=== PATIENT | female | born 1940 | race Caucasian/White ===

== ENCOUNTER 2018-07-26 15:53 | Emergency (ER) | payer MEDICARE ==
[2018-07-26 16:17] LABS: BILIRUBIN,URINE NEGATIVE (NEGATIVE); GLUCOSE, URINE (UA) NEGATIVE (NEGATIVE); KETONES,URINE (UA) NEGATIVE (NEGATIVE); LEUKOCYTE ESTERASE, URINE SMALL (NEGATIVE); NITRITE,URINE POSITIVE (NEGATIVE); OCCULT BLOOD,URINE TRACE-INTA (NEGATIVE); PROTEIN,URINE TRACE mg/dL (NEGATIVE); UROBILINOGEN,URINE 0.2 (NORMAL) E.U./dL (NORMAL)
[2018-07-26 16:23] LABS: CLARITY,URINE HAZY (CLEAR)
[2018-07-26 16:24] LABS: BACTERIA,URINE Many /HPF (None Seen); RBC,URINE 0-5 /HPF (0-5); SQUAMOUS EPITHELIAL CELL,UR FEW Squamous (<= Few); WBC CLUMPS,URINE PRESENT
--- NOTE | 2018-07-26 16:30 | ED Physician Documentation ---
History of Present Illness - Stated complaint Stated Complaint: CONFUSION/DIFFICULTY REMEMBERING - Chief complaint Chief Complaint: Neuro - History obtained from History obtained from: Patient, Friend - Additonal information Additional information: Patient is a 78-year-old female with history of hypertension and chronic pain presenting with her friend with concern for confusion and word finding diff iculty. Time of onset is unknown as patient lives alone. Friend reports that patient called her earlier today stating that she did not feel well and wanted to go to the emergency department. Patient was particularly complaining of nausea, but denies fever, shortness of breath, cough, chest pain, abdominal pain, urinary or stool changes. Patient perseverates on stopping her chronic narcotic pain medications. Patient is able to produce multiple pill bottles for oxycodone 53 25 quantity 90, 2 bottles both filled on 06/17/18. Patient cannot explain if she has taken all of them or if she got rid of them. There are no pills in either bottle. Patient speaks to receiving a letter in the mail from her old primary care group stating that she should no longer be taking narcotics. Friend does not have much further information and additional family members are trying to be contacted. Otherwise, patient cannot provide further details. No known worsening or improving factors to symptoms. Review of Systems Unable to obtain: Confused Constitutional: denies: Fever GI: denies: Abdominal Pain PD PAST MEDICAL HISTORY - Past Medical History Cardiovascular: Hypertension HEENT: Other - Past Surgical History Past Surgical History: Yes Ortho: Spine surgery HEENT: Cataracts, Tonsil/Adenoidectomy - Present Medications Home Medications: Ambulatory Orders Medication Instructions Recorded Confirmed HYDROcod/ACETAM 5/325 [[place] 5/325] 1 ea PO Q6H PRN #15 tablet 05/14/15 Lidocaine Patch 5% [Lidoderm Patch] 1 each TOP DAILY PRN #10 patch 05/14/15 Cephalexin [Keflex] 500 mg PO BID #14 capsule 07/26/18 - Allergies Allergies/Adverse Reactions: Allergies Allergy/AdvReac Type Severity Reaction Status Date / Time Sulfa (Sulfonamide Allergy Rash Verified 07/26/18 16:08 Antibiotics) - Social History Does the pt smoke?: No Smoking Status: Never smoker Does the pt drink ETOH?: Yes Does the pt have substance abuse?: No - Immunizations Immunizations are current?: Yes - POLST Patient has POLST: No PD ED PE NORMAL - General General: Other (Anxious, otherwise healthy-appearing, sitting comfortably and otherwise in bleeding without issue in room. Speaking in full sentences.) - HEENT HEENT: Atraumatic, PERRL (Gross visual acuity intact. No nystagmus.), EOMI, Moist mucous membranes, Pharynx benign - Neck Neck: No bony TTP - Cardiac Cardiac: RRR, No murmur - Respiratory Respiratory: No respiratory distress, Clear bilaterally - Abdomen Abdomen: Normal bowel sounds, Soft, Non tender, Non distended - Derm Derm: Normal color, Warm and dry, No rash - Extremities Extremities: No deformity, No tenderness to palpate, No edema - Neuro Neuro: No motor deficit (No gross motor or sensory deficits present. Patient using all extremities spontaneously and purposefully.), No sensory deficit, Normal speech (Normal sounding speech and speaking in full sentences, but pressured.). No: Alert and oriented X 3 (Patient oriented to herself only.) - Psych Psych: Other (Anxious) Results - Vitals Vitals: Vital Signs - 24 hr 07/26/18 07/26/18 16:04 18:21 Temperature 36.7 C 36.9 C Heart Rate 115 H 94 Respiratory 18 20 Rate Blood Pressure 146/95 H 190/106 H O2 Saturation 96 95 Oxygen O2 Source Room air - EKG (time done) 1701 Rate: Rate (enter#) (92) Rhythm: NSR QRS: LVH - Labs Labs: Laboratory Tests 07/26/18 07/26/18 07/26/18 16:04 17:00 17:00 WBC 8.0 RBC 4.32 Hgb 13.2 Hct 37.6 MCV 87.1 MCH 30.5 MCHC 35.1 RDW 12.5 Plt Count 348 MPV 7.3 L Neut # (Auto) 6.4 Lymph # (Auto) 1.1 L Andrews # (Auto) 0.5 Eos # (Auto) 0.0 Baso # (Auto) 0.1 Absolute Nucleated RBC 0.00 Nucleated RBC % 0.0 Sodium 136 Potassium 3.6 Chloride 99 L Carbon Dioxide 25 Anion Gap 12.0 BUN 19 Creatinine 0.8 Estimated GFR (MDRD) 69 L Glucose 127 H Calcium 9.9 Total Bilirubin 0.7 AST 26 ALT 20 Alkaline Phosphatase 74 Troponin I Total Protein 7.7 Albumin 4.9 Globulin 2.8 Albumin/Globulin Ratio 1.8 Lipase 28 TSH Urine Color YELLOW Urine Clarity HAZY Urine pH 6.0 Ur Specific [place] 1.020 Urine Protein TRACE Urine Glucose (UA) NEGATIVE Urine Ketones NEGATIVE Urine Occult Blood TRACE-INTA Urine Nitrite POSITIVE H Urine Bilirubin NEGATIVE Urine Urobilinogen 0.2 (NORMAL) Ur Leukocyte Esterase SMALL H Urine RBC 0-5 Urine WBC >25 H Urine WBC Clumps PRESENT Ur Squamous Epith Cells FEW Squamous Urine Bacteria Many H Ur Microscopic Review INDICATED Urine Culture Comments INDICATED Salicylates < 6.0 Urine Opiates Screen Ur Oxycodone Screen Urine Methadone Screen Ur Propoxyphene Screen Acetaminophen < 10 L Ur Barbiturates Screen Ur Tricyclics Screen Ur Phencyclidine Scrn Ur Amphetamine Screen U Methamphetamines Scrn U Benzodiazepines Scrn Urine Cocaine Screen U Cannabinoids Screen Ethyl Alcohol < 5.0 07/26/18 07/26/18 07/26/18 17:00 17:00 19:00 WBC RBC Hgb Hct MCV MCH MCHC RDW Plt Count MPV Neut # (Auto) Lymph # (Auto) Andrews # (Auto) Eos # (Auto) Baso # (Auto) Absolute Nucleated RBC Nucleated RBC % Sodium Potassium Chloride Carbon Dioxide Anion Gap BUN Creatinine Estimated GFR (MDRD) Glucose Calcium Total Bilirubin AST ALT Alkaline Phosphatase Troponin I < 0.04 Total Protein Albumin Globulin Albumin/Globulin Ratio Lipase TSH 0.51 Urine Color Urine Clarity Urine pH Ur Specific [place] Urine Protein Urine Glucose (UA) Urine Ketones Urine Occult Blood Urine Nitrite Urine Bilirubin Urine Urobilinogen Ur Leukocyte Esterase Urine RBC Urine WBC Urine WBC Clumps Ur Squamous Epith Cells Urine Bacteria Ur Microscopic Review Urine Culture Comments Salicylates Urine Opiates Screen NEGATIVE Ur Oxycodone Screen POSITIVE H Urine Methadone Screen NEGATIVE Ur Propoxyphene Screen NEGATIVE Acetaminophen Ur Barbiturates Screen NEGATIVE Ur Tricyclics Screen NEGATIVE Ur Phencyclidine Scrn NEGATIVE Ur Amphetamine Screen NEGATIVE U Methamphetamines Scrn NEGATIVE U Benzodiazepines Scrn NEGATIVE Urine Cocaine Screen NEGATIVE U Cannabinoids Screen NEGATIVE Ethyl Alcohol PD MEDICAL DECISION MAKING - ED course Complexity details: reviewed old records, reviewed results, re-evaluated patient, considered differential, d/w patient, d/w family ED course: Patient has minimal chart review. Friend is present with patient, but does not have many details. Patient herself is anxious and confused and perseverates on certain topics, although is unable to provide significant history. Physical exam does not reveal evidence of trauma or specific neurological deficit, as well as any signs of particular systemic infection.Patient does have multiple pill bottles for oxycodone with her. All pill bottles are empty and do have concern for possible ingestion of narcotics, although patient does not appear to be suffering from narcosis. Patient could also be withdrawing from narcotics as she has been taking these medications regularly for several years, as reported by her.Patient has pressured speech, but no known history of psychiatric disorder per chart review or per her or her friend.At this time, considering multiple etiologies including intracranial pathology such as stroke or mass. Feel less likely that patient is suffering from systemic illness like pneumonia or UTI, as well as from cardiac process like ACS, myocardial infarction, unstable angina, but considered. Will obtain broad workup including screening lab work, urinalysis, drug screening, and CT head to begin with. Friend is trying to contact additional family members.Nursing staff was able to get a hold of patient's son, who unfortunately is not able to come in [facility], but admitted that his mother has been suffering from dementia-like symptoms for the past several months and he has had to take over more of her daily activities for her. At this time, it appears that her changes are not necessarily acute, but likely gradual possibly worsening, again more indicative of dementia or Alzheimer's. Lab work returned relatively unremarkable. However, urinalysis concerning for infection and feel that UTI could be contributing to her underlying dementia and worsening of the situation. Will give fluids and IV antibiotics while in ED and awaiting further workup. CT imaging also returned without evidence of stroke. At this time, do not feel patient requires emergent MRI as feel that her underlying dementia and new UTI are the likely cause for her altered mental status. Friend is still present and able to drive patient home and sent states that he will check on patient tomorrow morning. Prescribed antibiotic for home for UTI, as well as provided documentation supportive cares, return precautions, and need for close follow-up. Friend, son, and patient voiced understanding. Departure - Departure Disposition: 01 Home, Self Care Clinical Impression: Altered mental status Qualifiers: Altered mental status type: unspecified Qualified Code(s): R41.82 - Altered mental status, unspecified Dementia Qualifiers: Dementia type: unspecified type Dementia behavioral disturbance: with behavioral disturbance Qualified Code(s): F03.91 - Unspecified dementia with behavioral disturbance Urinary tract infection Qualifiers: Urinary tract infection type: acute cystitis Hematuria presence: without hematuria Qualified Code(s): N30.00 - Acute cystitis without hematuria Condition: Good Instructions: ED UTI Cystitis Female Follow-Up: NOAH AGUAYO MD [Primary Care Provider] - Within 3 Days Prescriptions: Cephalexin [Keflex] 500 mg PO BID #14 capsule Comments: Please continue any home medications as previously prescribed, although do not recommend continuing oxycodone or other sedative substances as this may cause your mentation to worsen. Please take antibiotic as prescribed through completion for bladder infection. Please contact your primary care physician tomorrow to establish follow-up to discuss your urinary tract infection, as well as concerns for dementia-like changes, particularly over the past several months. Return to ED sooner if expands worsening symptoms or other concerns.
[2018-07-26 17:09] LABS: BASOPHILS # (AUTO) 0.1 10^3/uL (0.0-0.1); BASOPHILS % (AUTO) 0.7 %; EOSINOPHILS % (AUTO) 0.1 %; HGB - HEMOGLOBIN 13.2 g/dL (12.0-16.0); LYMPHOCYTES # (AUTO) 1.1 10^3/uL (1.5-3.5); LYMPHOCYTES % (AUTO) 13.5 %; MEAN CORPUSCULAR HEMOGLOBIN 30.5 pg (27.0-31.0); MEAN CORPUSCULAR HGB CONC 35.1 g/dL (32.0-36.0); MEAN CORPUSCULAR VOLUME 87.1 fL (81.0-99.0); MEAN PLATELET VOLUME 7.3 fL (7.9-10.8); MONOCYTES # (AUTO) 0.5 10^3/uL (0.0-1.0); MONOCYTES % (AUTO) 6.4 %; NEUTROPHILS # (AUTO) 6.4 10^3/uL (1.5-6.6); NEUTROPHILS % (AUTO) 79.3 %; PLT - PLATELET COUNT 348 10^3/uL (130-450); RED BLOOD COUNT 4.32 10^6/uL (4.20-5.40); RED CELL DISTRIBUTION WIDTH 12.5 % (12.0-15.0)
[2018-07-26 17:22] LABS: ACETAMINOPHEN < 10 ug/mL (10-30); ALBUMIN 4.9 g/dL (3.2-5.5); ALBUMIN/GLOBULIN RATIO 1.8 (1.0-2.2); ALKALINE PHOSPHATASE 74 IU/L (42-121); ALT ALANINE AMINOTRANSFERASE 20 IU/L (10-60); AST ASPARTATE AMINOTRANSFERASE 26 IU/L (10-42); BILIRUBIN,TOTAL 0.7 mg/dL (0.2-1.0); BUN - BLOOD UREA NITROGEN 19 mg/dL (6-20); CALCIUM 9.9 mg/dL (8.5-10.3); CARBON DIOXIDE - CO2 25 mmol/L (21-32); CHLORIDE 99 mmol/L (101-111); CREATININE 0.8 mg/dL (0.4-1.0); GFR - MDRD 69 (>89); GLUCOSE 127 mg/dL (70-100); LIPASE 28 U/L (22-51); SALICYLATE < 6.0 mg/dL; SODIUM 136 mmol/L (135-145); TOTAL PROTEIN 7.7 g/dL (6.7-8.2)
--- NOTE | 2018-07-26 17:52 | CT Report ---
Reason: new onset confusion, word finding difficulty Procedure Date: 07/26/2018 Accession Number: [id number] / [id number] Procedure: CT - HEAD WO CPT Code: FULL RESULT: EXAM: CT HEAD EXAM DATE: 07/26/2018 05:19 PM. CLINICAL HISTORY: New onset confusion, word finding difficulty. COMPARISON: None. TECHNIQUE: Multiaxial CT images were obtained from the foramen magnum to the vertex. Reformats: Sagittal and coronal. IV contrast: None. In accordance with CT protocol optimization, one or more of the following dose reduction techniques were utilized for this exam: automated exposure control, adjustment of mA and/or KV based on patient size, or use of iterative reconstructive technique. FINDINGS: Parenchyma: No intraparenchymal hemorrhage. No evidence of mass, midline shift, or CT findings of acute infarction. Periventricular white matter hypodensity likely represent small vessel ischemic disease. Feliz-white differentiation is distinct. Extraaxial Spaces: Normal for age. No subdural or epidural collections identified. Ventricles: Normal in size and position. Sinuses and Orbits: Imaged paranasal sinuses, orbits, and mastoids show no significant abnormality. Bones: No evidence of fracture or calvarial defect. Other: None. IMPRESSION: No acute intracranial CT abnormality. RADIA
[2018-07-26] MEDS ORDERED: SODIUM CHLORIDE 0.9% 1,000 ML IV ONE (18:46)
[2018-07-26] MEDS ORDERED: cefTRIAXone 1 GM in SODIUM CHLORIDE 0.9% MINIBAG 100 ML IV STA (18:47)
[2018-07-26 19:05] LABS: MUDS CUTOFF CONCENTRATIONS CUTOFF CONC BELOW:
[2018-07-26 19:34] LABS: AMPHETAMINE SCREEN,URINE NEGATIVE (NEGATIVE); BENZODIAZEPINES SCREEN, URINE NEGATIVE (NEGATIVE); COCAINE SCREEN URINE NEGATIVE (NEGATIVE); METHADONE SCREEN, URINE NEGATIVE (NEGATIVE); METHAMPHETAMINES SCREEN, URINE NEGATIVE (NEGATIVE); OPIATE SCREEN, URINE NEGATIVE (NEGATIVE); OXYCODONE SCREEN, URINE POSITIVE (NEGATIVE); PROPOXYPHENE SCREEN, URINE NEGATIVE (NEGATIVE); TRICYCLIC ANTIDEPRESSANT,URINE NEGATIVE (NEGATIVE)
[2018-07-26 20:14] VITALS: BP 155/105
== END 2018-07-26 20:22 | disposition home or self-care (01) ==
LOC: ED 15:53
DX: F03.91 Unspecified dementia, unspecified severity, with behavioral disturbance (principal); N30.00 Acute cystitis without hematuria; I10 Essential (primary) hypertension
CPT/HCPCS: 36415; 70450; 80053; 80306; 80307; 80320; 80329; 81001; 81003; 83690; 84443; 84484; 85025; 87077; 87086; 87181; 93005; 96365; 99284

== ENCOUNTER 2018-08-14 08:04 | Emergency (ER) | payer MEDICARE ==
[2018-08-14] MEDS ORDERED: HYOSCYAMINE SL 0.125 MG TABLET SL STA (08:34)
[2018-08-14] MEDS ORDERED: SODIUM CHLORIDE 0.9% 1,000 ML IV ONE (08:34)
--- NOTE | 2018-08-14 08:45 | ED Physician Documentation ---
PD HPI ABD PAIN - Stated complaint Stated Complaint: ABD PX/WEAKNESS - Chief complaint Chief Complaint: UTI - History obtained from History obtained from: Patient, Family - History of Present Illness Timing - onset: Today Timing - duration: Days (1) Timing - details: Abrupt onset Pain level max: 10 Pain level now: 1 Quality: Pain Location: All over / everywhere Improved by: Other (Nothing) Worsened by: Other (Nothing) Associated symptoms: Nausea, Constipation (Unknown last bowel movement). No: Fever, Vomiting, Hematemesis, Diarrhea, Melena, Hematochezia, Dysuria, Hematuria Similar symptoms before: Diagnosis (Has chronic all over body pain including chronic abdominal pain.) Recently seen: Clinic (Saw her primary care provider a few days ago for similar symptoms, started on Augmentin for a UTI. She was also given Zofran and Percocet.) - Additional information Additional information: Patient does have dementia and often has difficulty remembering things or recalling events. Son states her confusion is worse than usual. Review of Systems Unable to obtain: Confused, Dementia Constitutional: denies: Fever Respiratory: denies: Cough GI: denies: Vomiting Skin: denies: Rash Musculoskeletal: denies: Neck pain, Back pain PD PAST MEDICAL HISTORY - Past Medical History Cardiovascular: Hypertension Neuro: Dementia HEENT: Other - Past Surgical History Past Surgical History: Yes Ortho: Spine surgery HEENT: Cataracts, Tonsil/Adenoidectomy - Present Medications Home Medications: Ambulatory Orders Medication Instructions Recorded Confirmed Amoxicillin/Potassium Clav 1 08/14/18 [Amox-Clav 875-125 mg Tablet] Ondansetron Odt [Zofran] 4 mg TL Q6H PRN 08/14/18 08/14/18 Oxycodone HCl/Acetaminophen 1 each PO 08/14/18 08/14/18 [Oxycodone-Acetaminophen 5-325] - Allergies Allergies/Adverse Reactions: Allergies Allergy/AdvReac Type Severity Reaction Status Date / Time Sulfa (Sulfonamide Allergy Rash Verified 08/14/18 08:12 Antibiotics) - Social History Does the pt smoke?: No Smoking Status: Never smoker Does the pt drink ETOH?: Yes Does the pt have substance abuse?: No - Immunizations Immunizations are current?: Yes - POLST Patient has POLST: No PD ED PE NORMAL - Vitals Vital signs reviewed: Yes - General General: No acute distress, Other (Alert, oriented to person and place.) - HEENT HEENT: Atraumatic, PERRL, Ears normal, Moist mucous membranes, Pharynx benign - Neck Neck: Supple, no meningeal sign - Cardiac Cardiac: RRR - Respiratory Respiratory: No respiratory distress, Clear bilaterally - Abdomen Abdomen: Soft, Other (Mild diffuse tenderness palpation throughout the abdomen. 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-12 intact, No motor deficit, No sensory deficit, Normal speech Results - Vitals Vitals: Vital Signs - 24 hr 08/14/18 08/14/18 08/14/18 08:10 10:21 11:47 Temperature 36.3 C L 35.6 C L Heart Rate 93 73 87 Respiratory 18 20 20 Rate Blood Pressure 182/107 H 159/77 H 146/128 H O2 Saturation 98 98 98 Oxygen O2 Source Room air - Labs Labs: Laboratory Tests 08/14/18 08/14/18 08/14/18 09:00 09:00 09:10 WBC 5.4 RBC 4.06 L Hgb 12.2 Hct 35.5 L MCV 87.4 MCH 30.1 MCHC 34.5 RDW 12.8 Plt Count 308 MPV 8.1 Neut # (Auto) 4.2 Lymph # (Auto) 0.8 L [place] # (Auto) 0.4 Eos # (Auto) 0.0 Baso # (Auto) 0.0 Absolute Nucleated RBC 0.00 Nucleated RBC % 0.0 Sodium 136 Potassium 3.4 L Chloride 97 L Carbon Dioxide 27 Anion Gap 12.0 BUN 15 Creatinine 1.0 Estimated GFR (MDRD) 54 L Glucose 123 H Calcium 9.5 Total Bilirubin 0.7 AST 63 H ALT 51 Alkaline Phosphatase 59 Total Protein 6.6 L Albumin 4.0 Globulin 2.6 Albumin/Globulin Ratio 1.5 Lipase 24 Urine Color YELLOW Urine Clarity CLEAR Urine pH 7.5 Ur Specific [place] <=1.005 Urine Protein NEGATIVE Urine Glucose (UA) NEGATIVE Urine Ketones NEGATIVE Urine Occult Blood TRACE-INTA Urine Nitrite NEGATIVE Urine Bilirubin NEGATIVE Urine Urobilinogen 0.2 (NORMAL) Ur Leukocyte Esterase NEGATIVE Ur Microscopic Review NOT INDICATED Urine Culture Comments NOT INDICATED - Rads (name of study) Abdomen pelvis CT Radiology: Prelim report reviewed, EMP read contemporaneously, See rad report (Distended gallbladder with probable faint dependent stones. No wall thickening or significant biliary ductal dilatation. Consider gallbladder ultrasound. 2. A 2.3 cm pancreatic tail cyst. Options to further assess include endoscopic ultrasound with FNA or re-imaging in 6 months. 3. Diverticulosis without evidence for diverticulitis. 4. A 3.3 cm left ovarian cyst with thin septation. Recommend further characterization with nonemergent pelvic ultrasound. 5. Right and left inguinal hernias both contain small-bowel loops; however, no evidence for bowel obstruction. ) Right upper quadrant ultrasound Radiology: Prelim report reviewed, EMP read contemporaneously, See rad report (1. 2.2 cm gallstone. Ultrasound findings not suggestive of acute cholecystitis. 2. Dilated common bile duct measuring up to 9 mm diameter corresponding to duct prominence visible on CT. No definite duct stone is seen on ultrasound. If an obstructive pattern of LFTs is present, further assessment with MRI/MRCP could also be considered. 3. Echogenic right lobe liver mass measuring up to 15 mm. Review of prior CT scan shows a corresponding low attenuation liver focus coronal series 5 image 20 and axial series 3 images 27-29. Axial examination shows a suggestion of small punctate peripheral areas of pooling type enhancement. Overall characteristics are most consistent with hemangioma. 4. Examination otherwise as above. ) PD MEDICAL DECISION MAKING - ED course Complexity details: reviewed results, re-evaluated patient, considered dif ferential, d/w patient, d/w family ED course: 78-year-old female with abdominal pain of unclear etiology. We will have her follow-up with her doctor for further evaluation and care. She was informed of the abnormal findings on CT scan and the need for follow-up. Her son was also informed of this. Social work was consulted and given resources to help with possible placement. They are trying to get her to a facility on Thursday on [address]. Patient is well-appearing, nontoxic. Tolerating p.o. without difficulty. Patient and family counseled regarding signs and symptoms for which I believe and urgent re-evaluation would be necessary. Patient with good understanding of and agreement to plan and is comfortable going home at this time This document was made in part using voice recognition software. While efforts are made to proofread this document, sound alike and grammatical errors may occur. Departure - Departure Disposition: Home, Self Care Clinical Impression: Abdominal pain Qualifiers: Abdominal location: unspecified location Qualified Code(s): R10.9 - Unspecified abdominal pain Condition: Good Instructions: ED Abdominal Pain Unkn Cause Follow-Up: your,doctor in 3 days [Other] Comments: You do have a gallstone and this may cause pain sometimes, there is no infection there today. Continue your antibiotics at home. [facility] may be able to place her medication in blister packs rather than bottles to help know what medication she is taking at home. Return if she worsens. You need to follow up these findings with your doctor. A 2.3 cm pancreatic tail cyst. Options to further assess include endoscopic ultrasound with FNA or re-imaging in 6 months. A 3.3 cm left ovarian cyst with thin septation. Recommend further characterization with nonemergent pelvic ultrasound. Discharge Date/Time: 08/14/18 11:50
[2018-08-14] MEDS ORDERED: IOVERSOL 320 100 ML VIAL IVP ONE ×2 (08:50→09:36)
[2018-08-14 09:20] LABS: BILIRUBIN,URINE NEGATIVE (NEGATIVE); GLUCOSE, URINE (UA) NEGATIVE (NEGATIVE); KETONES,URINE (UA) NEGATIVE (NEGATIVE); LEUKOCYTE ESTERASE, URINE NEGATIVE (NEGATIVE); NITRITE,URINE NEGATIVE (NEGATIVE); OCCULT BLOOD,URINE TRACE-INTA (NEGATIVE); PH,URINE 7.5 PH (5.0-7.5); PROTEIN,URINE NEGATIVE (NEGATIVE); UROBILINOGEN,URINE 0.2 (NORMAL) E.U./dL (NORMAL)
[2018-08-14 09:24] LABS: BASOPHILS % (AUTO) 0.3 %; EOSINOPHILS % (AUTO) 0.2 %; HGB - HEMOGLOBIN 12.2 g/dL (12.0-16.0); LYMPHOCYTES # (AUTO) 0.8 10^3/uL (1.5-3.5); LYMPHOCYTES % (AUTO) 14.8 %; MEAN CORPUSCULAR HEMOGLOBIN 30.1 pg (27.0-31.0); MEAN CORPUSCULAR HGB CONC 34.5 g/dL (32.0-36.0); MEAN CORPUSCULAR VOLUME 87.4 fL (81.0-99.0); MEAN PLATELET VOLUME 8.1 fL (7.9-10.8); MONOCYTES # (AUTO) 0.4 10^3/uL (0.0-1.0); MONOCYTES % (AUTO) 7.5 %; NEUTROPHILS # (AUTO) 4.2 10^3/uL (1.5-6.6); NEUTROPHILS % (AUTO) 77.2 %; PLT - PLATELET COUNT 308 10^3/uL (130-450); RED BLOOD COUNT 4.06 10^6/uL (4.20-5.40); RED CELL DISTRIBUTION WIDTH 12.8 % (12.0-15.0); WHITE BLOOD COUNT 5.4 x10^3/uL (4.8-10.8)
[2018-08-14 09:29] LABS: ALBUMIN/GLOBULIN RATIO 1.5 (1.0-2.2); BILIRUBIN,TOTAL 0.7 mg/dL (0.2-1.0); CALCIUM 9.5 mg/dL (8.5-10.3); TOTAL PROTEIN 6.6 g/dL (6.7-8.2)
[2018-08-14 09:29] LABS: CLARITY,URINE CLEAR (CLEAR)
--- NOTE | 2018-08-14 10:01 | CT Report ---
Reason: diffuse abd pain Procedure Date: 08/14/2018 Accession Number: [id number] / [id number] Procedure: CT - Abdomen/Pelvis W CPT Code: FULL RESULT: EXAM: CT ABDOMEN AND PELVIS EXAM DATE: 08/14/2018 09:21 AM. CLINICAL HISTORY: Diffuse abdominal pain. COMPARISONS: None. TECHNIQUE: Routine helical CT imaging was performed through the abdomen and pelvis. IV contrast: 100 mL Optiray 320. Enteric contrast: No. Reconstructions: Coronal and sagittal. In accordance with CT protocol optimization, one or more of the following dose reduction techniques were utilized for this exam: automated exposure control, adjustment of mA and/or KV based on patient size, or use of iterative reconstructive technique. FINDINGS: Lung Bases: Unremarkable. Liver: Normal. No masses. Gallbladder/Bile Ducts: Distended gallbladder without evidence of wall thickening. Probable faint dependent gallstone. 7-8 mm CBD is probably within normal limits for patient age. No intrahepatic biliary ductal dilatation. Spleen: Normal. Pancreas: A 3.2 cm pancreatic tail cyst. No thick septations or mural nodules evident. Adrenal Glands: Normal. Kidneys: Normal. No masses or hydronephrosis. Peritoneal Cavity/Bowel: Right and left inguinal hernias both contain small-bowel loops without evidence for bowel obstruction. Fat-containing posterior right and left diaphragmatic hernias. No inflamed appendix evident. Appendix not definitively identified. Diverticulosis. Pelvic Organs: 3.3 x 2.5 x 2.5 cm left ovarian cyst with thin curvilinear septation. Unremarkable uterus and right adnexal region. Bladder is partially distended and grossly unremarkable. Vasculature: No aneurysms or other significant abnormality. Bones: Prominent L3-L4 degenerative disk changes with vacuum phenomena. Spinal canal stenosis at L4-L5 level due to disk bulge and ligamentum flavum hypertrophy. Other: None. IMPRESSION: 1. Distended gallbladder with probable faint dependent stones. No wall thickening or significant biliary ductal dilatation. Consider gallbladder ultrasound. 2. A 2.3 cm pancreatic tail cyst. Options to further assess include endoscopic ultrasound with FNA or re-imaging in 6 months. 3. Diverticulosis without evidence for diverticulitis. 4. A 3.3 cm left ovarian cyst with thin septation. Recommend further characterization with nonemergent pelvic ultrasound. 5. Right and left inguinal hernias both contain small-bowel loops; however, no evidence for bowel obstruction. RADIA
--- NOTE | 2018-08-14 11:33 | Ultrasound Report ---
Reason: RUQ abd pain Procedure Date: 08/14/2018 Accession Number: [id number] / [id number] Procedure: US - Abdomen Limited CPT Code: FULL RESULT: EXAM: ABDOMEN ULTRASOUND LIMITED, RUQ EXAM DATE: 08/14/2018 10:58 AM. CLINICAL HISTORY: RUQ abd pain. COMPARISON: CT 08/14/2018. TECHNIQUE: Real-time scanning was performed with static images obtained. FINDINGS: Liver: Normal in size and overall echotexture. Right lobe superior to inferior 14.7 cm. Echogenic lobular subcapsular nodular focus in the posterior lateral aspect of right lobe measures 13 x 15 x 14 mm. No additional mass seen. Main portal vein flow: Hepatopetal. Gallbladder: Single mobile shadowing 2.2 cm gallstone. No pericholecystic fluid, wall thickening, or sonographic Torres's sign. Biliary System: CBD measures 9 mm. No intrahepatic duct dilation. No intraductal stone seen. Other: None. IMPRESSION: 1. 2.2 cm gallstone. Ultrasound findings not suggestive of acute cholecystitis. 2. Dilated common bile duct measuring up to 9 mm diameter corresponding to duct prominence visible on CT. No definite duct stone is seen on ultrasound. If an obstructive pattern of LFTs is present, further assessment with MRI/MRCP could also be considered. 3. Echogenic right lobe liver mass measuring up to 15 mm. Review of prior CT scan shows a corresponding low attenuation liver focus coronal series 5 image 20 and axial series 3 images 27-29. Axial examination shows a suggestion of small punctate peripheral areas of pooling type enhancement. Overall characteristics are most consistent with hemangioma. 4. Examination otherwise as above. RADIA
[2018-08-14 11:48] VITALS: BP 146/128
== END 2018-08-14 11:50 | disposition home or self-care (01) ==
LOC: ED 08:04
DX: R10.9 Unspecified abdominal pain (principal); K80.80 Other cholelithiasis without obstruction; K86.2 Cyst of pancreas; N83.202 Unspecified ovarian cyst, left side; F03.90 Unspecified dementia, unspecified severity, without behavioral disturbance, psychotic disturbance, mood disturbance, and anxiety; I10 Essential (primary) hypertension; K40.90 Unilateral inguinal hernia, without obstruction or gangrene, not specified as recurrent
CPT/HCPCS: 36415; 74177; 76705; 80053; 81003; 83690; 85025; 96360; 99283; 99284; A9270; Q9967; 81001; 87086